=== PATIENT | female | born 1945 | race Hispanic/Latino ===

== ENCOUNTER 2016-10-16 09:00 | Observation (INO) | payer MEDICARE ==
[~2016-10-16 09:00] MED LIST: ANCEF/STERILE WATER 2 GM/20 ML 2 GM/20 ML SYRINGE IV NR; NACL 0.9% 1000 ML 1,000 ML IV SCH
[2016-10-16] MEDS ORDERED: ZOFRAN IV PRN (10:30)
--- NOTE | 2016-10-16 10:32 | Anesthesia Consultation ---
Anesthesia Consult and Med Hx Date of service: 10/16/16 - Airway Anesthetic Teeth Evaluation: Good, Chipped (TOP RIGHT MOLAR), Bridges ROM Head & Neck: Adequate Mental/Hyoid Distance: Adequate Mallampati Class: Class II Intubation Access Assessment: Probably Good - Pulmonary Exam CTA: Yes - Cardiac Exam Cardiac Exam: RRR - Pre-Operative Health Status ASA Pre-Surgery Classification: ASA4 Proposed Anesthetic Plan: General - Pulmonary Hx Smoking: No Hx Asthma: No Hx Sleep Apnea: No - Cardiovascular System Hx Hypertension: Yes (FOR 18 YRS) Hx Heart Attack/AMI: Yes (MILD IN 2013, REPORTS NORMAL CATH) - Central Nervous System Hx Seizures: No CVA: No Hx Psychiatric Problems: No - Endocrine Hx Renal Disease: Yes (POLYCYSTIC KIDNEY DISEASE, ON HD FOR 4 YRS) Hx End Stage Renal Disease: Yes (LAST HD WEDNESDAY) Hx Liver Disease: Yes (POLYCYSTIC LIVER DISEASE?) Hx Non-Insulin Dependent Diabetes: No Hx Thyroid Disease: Yes Hx Hypothyroidism: Yes - Hematic Hx Anemia: Yes (IN 2012) - Other Systems Hx Cancer: Yes (SKIN) Hx Obesity: Yes - Additional Comments Anesthesia Medical History Comments: NO PROBLEMS WITH ANESTHESIA IN THE PAST.
--- NOTE | 2016-10-16 10:34 | Anesthesia Day of Surgery ---
Anesthesia Day of Surgery - Day of Surgery Patient Examined: Yes Patient H&P Reviewed: Yes Patient is NPO: Yes Beta Blockers: Yes
[2016-10-16] MEDS ORDERED: PEPCID PO NR (11:00)
[2016-10-16] MEDS ORDERED: VERSED IV NR (11:00)
[2016-10-16 11:30] LABS: Basophils % (Auto) 0.8 % (0.0-1.8); Eosinophils % (Auto) 7.8 % (0.0-4.3); Hematocrit 28.3 % (30.3-42.9); Hemoglobin 9.1 gm/dl (10.1-14.3); Mean Corpuscular HGB Conc 32 % (30-34); Mean Corpuscular Hemoglobin 32 pg (28-32); Mean Corpuscular Volume 99 fl (79-97); Red Blood Count 2.87 M/mm3 (3.65-5.03); White Blood Count 3.8 K/mm3 (4.5-11.0)
[2016-10-16 11:31] LABS: Platelet Count 72 K/mm3 (140-440); Red Cell Distribution Width 20.5 % (13.2-15.2)
[2016-10-16] MEDS ORDERED: XYLOCAINE MPF 2% ONE (11:41)
[2016-10-16] MEDS ORDERED: DIPRIVAN 10 MG/ML IV ONE (11:41)
[2016-10-16] MEDS ORDERED: DILAUDID ONE (11:42)
[2016-10-16] MEDS ORDERED: HEPARIN 10,000 UNITS/10 ML ONE ×2 (12:03→13:42)
[2016-10-16] MEDS ORDERED: XYLOCAINE 1%/ EPI 1:100,000 INFILTRATI ONE (12:06)
[2016-10-16] MEDS ORDERED: THROMBIN (BOVINE) TP ONE (12:06)
[2016-10-16] MEDS ORDERED: SODIUM BICARBONATE ONE (12:07)
[2016-10-16] MEDS ORDERED: RIFADIN ONE (12:07)
[2016-10-16] MEDS ORDERED: NACL 0.9% 500 ML 500 ML ONE (12:08)
[2016-10-16] MEDS ORDERED: MARCAINE-EPI/PF 0.5%-1:200,000 INFILTRATI ONE ×2 (12:09→13:12)
[2016-10-16 12:12] LABS: BUN/Creatinine Ratio 8.33; Chloride 95.1 mmol/L (98-107); Potassium 3.6 mmol/L (3.6-5.0)
[2016-10-16] MEDS ORDERED: NACL 0.9% IR ONE (13:13)
[2016-10-16] MEDS ORDERED: HEPARIN 10,000 UNITS/10 ML 2,000 UNIT in NACL 0.9% 500 ML 500 ML IR ONE (13:14)
[2016-10-16] MEDS ORDERED: ZOFRAN ONE (13:42)
[2016-10-16] MEDS ORDERED: NACL 0.9% 250ML 250 ML ONE (14:30)
[2016-10-16] MEDS ORDERED: ePHEDrine SULFATE ONE (14:36)
[2016-10-16] MEDS: DILAUDID IV PRN ×4 (15:30→16:00)
[2016-10-16] MEDS ORDERED: DECADRON ONE (15:34)
--- NOTE | 2016-10-16 15:43 | Operative Report ---
Operative Report Operative Report: Preoperative diagnosis: left arm pseudoaneurysmal AV access Post-operative diagnosis: Same Operation: AV access pseudoaneurysm repair with aneurysmorrhaphy. Left IJ PermCath insertion. Ultrasound guided access. Surgeon: Kiara Pascal DO. Beaming Inspector : ALICIA ROSALES Anesthesia type: Gen. Estimated blood loss: 100 mL Specimens: pseudoneurysm wall Indications: This is a 70-year-old male with large pseudoaneurysm of left AV fistula. Risks, benefits and alternatives were discussed with patient as well as option of pseudoaneurysm repair by aneurysmorrhaphy and permacath insertion or revising with AV graft. Patient understood, chose to proceed and signed informed consent. Procedure details: Patient was brought to the operating room in supine position with left arm on the extension table. Was put under general anesthesia. Her is left arm was prepped and draped in sterile fashion. The incision was initially created over distal and proximal part of the pseudoaneurysm over AVF with 15 blade and carried down with electrocautery. The proximal and distal parts of AV fistula was dissected and encircled with silastic loops. The incision was then carried over the pseudoaneurysm part with elliptical incision. Pseudoaneurysm was dissected down with electrocautery to the base. Proximal and distal control at this point was gained with the angled DeBakey clamps and patient was heparinized was 3000 heparin. The aneurysm was entered with electrocautery and the edges with the skin edges were excised. Pseudoaneurysm edges in the middle were approximated with 5-0 C1 stitch bilaterally to the aneurysmal wall reapproximated from both sides. Hemostasis was achieved with electrocautery one repair stitch required. Incision was closed in layers: 3-0 Vicryl and 4-0 Monocryl. Dermabond applied. All Instrument counts were correct 2. Sterile dressing was applied. Second procedure was left IJ PermCath insertion. Ultrasound was performed initially on the right IJ and noted to have sclerosed right IJ. Attention was switched to the left side which showed patent IJ. Ultrasound-guided left IJ access was gained with micropuncture needle and exchanged the micropuncture sheath. The wire was advanced with fluoroscopy guidance to SVC. Next PermCath was tunneled. Then access was dilated with serial dilators and peel-away sheath inserted under fluoroscopy guidance into the SVC. PermCath was inserted and positioned in the SVC atrial junction. There was smooth transection, no kinks. Ports were flushed with heparinized saline and gave good flow. They were locked with heparin and 1.8 mL in each. Patient tolerates procedure well and was transferred to the postanesthesia care unit in stable condition
[2016-10-16] MEDS ORDERED: REGLAN ONE (16:01)
[2016-10-16] MEDS ORDERED: REGLAN IV PRN (16:01)
--- NOTE | 2016-10-16 16:02 | Short Stay Summary ---
Short Stay Documentation Date of service: 10/16/16 - History H&P: obtained from office Past Medical History: ESRD, hypertension Social history: no significant social history - Allergies and Medications Current Medications: Allergies No Known Allergies Allergy (Verified 10/16/16 10:22) Home Medications Medication Instructions Recorded Confirmed Last Taken Type Ascorbic Acid [Vitamin C] 500 mg PO QDAY 10/13/16 10/13/16 10/15/16 History Calcium Acetate 667 mg PO TIDWM 10/13/16 10/13/16 10/15/16 History Carvedilol [Coreg] 25 mg PO BID 10/13/16 10/13/16 10/16/16 07:00 History Cholecalciferol Vit D3 [Vitamin D3] 1,000 unit PO QDAY 10/13/16 10/13/16 History Loratadine [Claritin] 10 mg PO DAILY PRN 10/13/16 10/13/16 10/15/16 History Losartan [Cozaar] 100 mg PO QDAY 10/13/16 10/13/16 10/16/16 07:00 History [place]-3S/Dha/Epa/Fish Oil [Fish 1 each PO QDAY 10/13/16 10/13/16 10/15/16 History Oil 1,200 mg Softgel] Sennosides Tab [Senokot] 3 tab PO QHS 10/13/16 10/13/16 10/15/16 History Thyroid,Pork [[place] Thyroid] 15 mg PO QDAY 10/13/16 10/13/16 10/15/16 History Vit B Cplx #11/FA/C/Biot/Zn Ox 1 each PO QDAY 10/13/16 10/13/16 10/15/16 History [Dialyvite with Zinc Tablet] amLODIPine [Norvasc] 5 mg PO BID 10/13/16 10/13/16 10/16/16 07:00 History Active Medications Famotidine (Pepcid) 20 mg PO PREOP NR Stop: 10/16/16 21:00 Last Admin: 10/16/16 11:35 Dose: 20 mg Hydromorphone HCl (Dilaudid) 0.25 mg IV Q10MIN PRN PRN Reason: Pain, Moderate (4-6) Stop: 10/16/16 17:00 Cefazolin Sodium (Ancef/Sterile Water 2 Gm/20 Ml) 2 gm in 20 mls @ 80 mls/hr IV PREOP NR PRN Reason: Protocol Stop: 10/16/16 23:59 Sodium Chloride (Nacl 0.9% 1000 Ml) 1,000 mls @ 42 mls/hr IV DIRECT [place] Last Admin: 10/16/16 11:30 Dose: 42 mls/hr Midazolam HCl (Versed) 2 mg IV PREOP NR Stop: 10/16/16 23:59 Last Admin: 10/16/16 12:16 Dose: 2 mg Ondansetron HCl (Zofran) 4 mg IV ONCE PRN PRN Reason: Nausea And Vomiting Stop: 10/16/16 21:00 - Brief post op/procedure progress note Date of procedure: 10/16/16 Pre-op diagnosis: malfunction of AVF, pseudoaneurysm Post-op diagnosis: same Procedure: left IJ permcath insertion US guided left IJ access left AVF revision with PSA repair Anesthesia: GETA Findings: aneurysm wall with intimal hyperplasia Surgeon: PHIL BARTHOLOMEW Card Doffer: ALICIA ROSALES Estimated blood loss: 50-100ml Pathology: list (psa wall) Specimen disposition: to lab Condition: stable - Disposition Condition at discharge: Good Disposition: [id number]-01 TO HOME OR SELFCARE - Discharge Diagnoses (1) Malfunction of arteriovenous dialysis fistula Status: Acute Qualifiers: Encounter type: E Short Stay Discharge Plan Diet: renal Wound: open to air Special Instructions: no heavy lifting Follow up with: PRIMARY CAREMD [Primary Care Provider] - 7 Days PHIL BARTHOLOMEW DO [Staff Physician] - 14 Days Prescriptions: HYDROcodone/APAP 5-325 [[place] 5/325] 1 each PO Q6HR PRN #20 tablet PRN Reason: Pain
--- NOTE | 2016-10-16 17:29 | Post Anesthesia Evaluation ---
- Post Anesthesia Evaluation Patient Participated: Yes Airway Patent: Yes Stable Respiratory Function: Yes Nausea/Vomiting: No Temp > 96.8F: Yes Pain Manageable: Yes Adequeate Hydration: Yes Anesthesia Complications: No Block Receding Appropriately: Not Applicable Patient on Ventilator: No
[2016-10-16] MEDS ORDERED: PROVENTIL IH ONE (17:41)
[2016-10-16] MEDS ORDERED: PROVENTIL IH PRN (17:45)
[2016-10-16] MEDS ORDERED: TRANSDERM-SCOP TD ONE (19:00)
[2016-10-17] MEDS ORDERED: NORVASC PO SCH
[2016-10-17] MEDS ORDERED: CLARITIN PO PRN
[2016-10-17] MEDS ORDERED: COREG PO SCH
--- NOTE | 2016-10-17 | Consultation ---
History of Present Illness - Reason for Consult Consult date: 10/16/16 Medical management Requesting physician: PHIL BARTHOLOMEW - History of Present Illness Had surgical intervention for malfunction of AVF, pseudoaneurysm L arm Also left IJ permcath insertion US guided left IJ access left AVF revision with PSA repair.Postop patient admitted for volume overload Htn and for HD.SOB and orthopnea present.Pain about 5/10. Past History Past Medical History: ESRD, hypertension, hyperlipidemia, hypothyroidism Past Surgical History: Other (AVF insertion previously and AVF repair today along with Permacath insertion in L IJ) Social history: no significant social history, lives with family Family history: hypertension Medications and Allergies Allergies Allergy/AdvReac Type Severity Reaction Status Date / Time No Known Allergies Allergy Verified 10/16/16 10:22 Home Medications Medication Instructions Recorded Confirmed Last Taken Type Ascorbic Acid [Vitamin C] 500 mg PO QDAY 10/13/16 10/13/16 10/15/16 History Calcium Acetate 667 mg PO TIDWM 10/13/16 10/13/16 10/15/16 History Carvedilol [Coreg] 25 mg PO BID 10/13/16 10/13/16 10/16/16 07:00 History Cholecalciferol Vit D3 [Vitamin D3] 1,000 unit PO QDAY 10/13/16 10/13/16 History Loratadine [Claritin] 10 mg PO DAILY PRN 10/13/16 10/13/16 10/15/16 History Losartan [Cozaar] 100 mg PO QDAY 10/13/16 10/13/16 10/16/16 07:00 History [place]-3S/Dha/Epa/Fish Oil [Fish 1 each PO QDAY 10/13/16 10/13/16 10/15/16 History Oil 1,200 mg Softgel] Sennosides Tab [Senokot] 3 tab PO QHS 10/13/16 10/13/16 10/15/16 History Thyroid,Pork [[place] Thyroid] 15 mg PO QDAY 10/13/16 10/13/16 10/15/16 History Vit B Cplx #11/FA/C/Biot/Zn Ox 1 each PO QDAY 10/13/16 10/13/16 10/15/16 History [Dialyvite with Zinc Tablet] amLODIPine [Norvasc] 5 mg PO BID 10/13/16 10/13/16 10/16/16 07:00 History HYDROcodone/APAP 5-325 [[place] 1 each PO Q6HR PRN #20 tablet 10/16/16 Unknown Rx 5/325] Active Meds: Active Medications Albuterol (Proventil) 2.5 mg IH ONCE PRN PRN Reason: Shortness Of Breath Last Admin: 10/16/16 18:10 Dose: 2.5 mg Sodium Chloride (Nacl 0.9% 1000 Ml) 1,000 mls @ 42 mls/hr IV DIRECT [place] Last Admin: 10/16/16 11:30 Dose: 42 mls/hr Review of Systems All systems: negative Constitutional: no weight loss, no weight gain, no fever, no chills Ears, nose, mouth and throat: no bleeding gums, no hoarseness, no sore throat Breasts: deferred Cardiovascular: shortness of breath, dyspnea on exertion, no chest pain, no orthopnea, no palpitations, no rapid/irregular heart beat, no edema, no syncope , no lightheadedness Respiratory: dyspnea on exertion, no cough, no cough with sputum, no excessive sputum, no hemoptysis, no shortness of breath, no congestion, no wheezing, no pleurisy, no pain, no pain on inspiration, no snoring Gastrointestinal: no abdominal pain, no nausea, no vomiting, no diarrhea, no constipation, no change in bowel habits, no hematemesis, no coffee ground emesis Genitourinary Female: no dysuria, no urinary frequency, no urgency, no stress incontinence, no post void dribbling Menstruation: ammenorrhea Musculoskeletal: no neck stiffness, no neck pain, no shooting arm pain, no arm numbness/tingling, no low back pain, no shooting leg pain, no leg numbness/ tingling, no redness of joints Integumentary: no rash, no pruritis, no redness, no sores, no wounds, no jaundice, no boils, no blisters Neurological: no seizures, no syncope Psychiatric: no anxiety, no memory loss, no change in sleep habits, no sleep disturbances, no insomnia, no hypersomnia, no change in appetite Endocrine: no cold intolerance, no heat intolerance, no polyphagia, no excessive thirst, no polydipsia Hematologic/Lymphatic: no easy bruising, no easy bleeding Allergic/Immunologic: no urticaria, no allergic rhinitis, no wheezing Exam - Physical Exam Narrative exam: Lying comfortably - Constitutional Vitals: Temp Pulse Resp BP Pulse Ox 97.4 F L 70 16 166/76 100 10/16/16 23:00 10/16/16 23:00 10/16/16 23:00 10/16/16 23:00 10/16/16 23:00 General appearance: Present: no acute distress, well-nourished - EENT Eyes: Present: PERRL ENT: hearing intact, clear oral mucosa - Neck Neck: Present: supple, normal ROM - Respiratory Respiratory effort: normal Respiratory: bilateral: CTA - Cardiovascular Heart Sounds: Present: S1 & S2. Absent: rub, click - Extremities Extremities: pulses symmetrical, No edema Peripheral Pulses: within normal limits - Abdominal General gastrointestinal: Present: soft, non-tender, non-distended, normal bowel sounds Female genitourinary: Present: normal - Integumentary Integumentary: Present: clear, warm, dry - Musculoskeletal Musculoskeletal: gait normal, strength equal bilaterally - Psychiatric Psychiatric: appropriate mood/affect, intact judgment & insight - Neurologic Neurologic: CNII-XII intact, moves all extremities Results - Labs CBC & Chem 7: 10/16/16 11:10 10/16/16 11:10 Labs: Abnormal lab results 10/16/16 10/16/16 Range/Units 11:10 11:10 WBC 3.8 L (4.5-11.0) K/mm3 RBC 2.87 L (3.65-5.03) M/mm3 Hgb 9.1 L (10.1-14.3) gm/dl Hct 28.3 L (30.3-42.9) % MCV 99 H (79-97) fl RDW 20.5 H (13.2-15.2) % Plt Count 72 L (140-440) K/mm3 Eos % (Auto) 7.8 H (0.0-4.3) % Lymph # 0.5 L (1.2-5.4) K/mm3 Seg Neutrophils % 71.6 H (40.0-70.0) % Chloride 95.1 L (98-107) mmol/L BUN 55 H (7-17) mg/dL Creatinine 6.6 H (0.7-1.2) mg/dL - Imaging and Cardiology EKG: report reviewed Assessment and Plan - Patient Problems (1) Malfunction of arteriovenous dialysis fistula Current Visit: Yes Status: Acute Qualifiers: Encounter type: initial encounter Qualified Code(s): T82.590A - Other mechanical complication of surgically created arteriovenous fistula, initial encounter Plan to address problem: Had surgical intervention.Not to use AV fistula for time being.Use L IJ permacath. (2) ESRD (end stage renal disease) on dialysis Current Visit: Yes Status: Chronic Plan to address problem: Cont HD.Nephrology consulted. (3) HTN (hypertension) Current Visit: Yes Status: Chronic Qualifiers: Hypertension type: essential hypertension Qualified Code(s): I10 - Essential (primary) hypertension Plan to address problem: Cont Amlodipine Losartan and carvedilol. (4) Hypothyroidism Current Visit: Yes Status: Chronic Qualifiers: Hypothyroidism type: acquired Qualified Code(s): E03.9 - Hypothyroidism, unspecified Plan to address problem: Cont [place] Thyroid or equivalent (5) Vitamin D deficiency Current Visit: Yes Status: Chronic Plan to address problem: Cont Vit D 1000 units qdAY (6) DVT prophylaxis Current Visit: Yes Status: Acute Plan to address problem: Scd's only
[2016-10-17] MEDS ORDERED: PHOSLO PO SCH (08:00)
--- NOTE | 2016-10-17 09:09 | Fluoroscopy Report ---
2 fluoroscopic images of the chest: History: Trauma catheter placement. Findings: Tip of the right appears to be in the right atrium. No pneumothorax. Impression: Tip of left permacath appears to be in right atrium.
--- NOTE | 2016-10-17 09:14 | XRay Report ---
Chest: History: Shortness of breath. Findings: Cardiomegaly. Trachea is midline. Stable large bore venous catheter. Mild pulmonary venous congestion with minimal bilateral pleural effusion. Impression: Probable CHF or fluid overload.
[2016-10-17] MEDS ORDERED: VITAMIN D3 PO SCH (10:00)
[2016-10-17] MEDS ORDERED: FISH OIL PO SCH (10:00)
[2016-10-17] MEDS ORDERED: COZAAR PO SCH (10:00)
[2016-10-17] MEDS ORDERED: VITAMIN C PO SCH (10:00)
[2016-10-17] MEDS ORDERED: THYROID PORK 15 MG PO SCH (10:00)
--- NOTE | 2016-10-17 10:27 | Progress Note ---
Subjective Date of service: 10/17/16 Interval history: Patient has no anesthetic related complaints. Objective - Constitutional Vitals: Vital Signs - 12hr 10/16/16 10/17/16 10/17/16 23:00 00:46 00:48 Temperature 97.4 F L Pulse Rate 70 70 Pulse Rate [ 70 Right] Respiratory 16 Rate Blood Pressure 166/76 166/76 Blood Pressure 166/76 [Right Arm] O2 Sat by Pulse 100 Oximetry 10/17/16 10/17/16 04:00 09:00 Temperature 97.7 F 97.6 F Pulse Rate Pulse Rate [ 67 71 Right] Respiratory 20 16 Rate Blood Pressure Blood Pressure 140/69 137/61 [Right Arm] O2 Sat by Pulse 93 Oximetry - Labs CBC & Chem 7: 10/16/16 11:10 10/16/16 11:10 Labs: Abnormal lab results 10/16/16 10/16/16 Range/Units 11:10 11:10 WBC 3.8 L (4.5-11.0) K/mm3 RBC 2.87 L (3.65-5.03) M/mm3 Hgb 9.1 L (10.1-14.3) gm/dl Hct 28.3 L (30.3-42.9) % MCV 99 H (79-97) fl RDW 20.5 H (13.2-15.2) % Plt Count 72 L (140-440) K/mm3 Eos % (Auto) 7.8 H (0.0-4.3) % Lymph # 0.5 L (1.2-5.4) K/mm3 Seg Neutrophils % 71.6 H (40.0-70.0) % Chloride 95.1 L (98-107) mmol/L BUN 55 H (7-17) mg/dL Creatinine 6.6 H (0.7-1.2) mg/dL
--- NOTE | 2016-10-17 10:28 | Consultation ---
History of Present Illness - Reason for Consult Consult date: 10/17/16 end stage renal disease Requesting physician: ISAAK MONTERO - History of Present Illness Had surgical intervention for malfunction of AVF, pseudoaneurysm L arm Also left IJ permcath insertion US guided left IJ access left AVF revision with PSA repair.Postop patient admitted for volume overload Htn and for HD.SOB and orthopnea present.Pain about 5/10. Past History Past Medical History: anemia, dialysis, ESRD, hypertension, hyperlipidemia, hypothyroidism, renal failure Past Surgical History: Other (AVF insertion previously and AVF repair today along with Permacath insertion in L IJ) Social history: lives with family. denies: alcohol abuse, prescription drug abuse Family history: hypertension Medications and Allergies Allergies Allergy/AdvReac Type Severity Reaction Status Date / Time No Known Allergies Allergy Verified 10/16/16 10:22 Home Medications Medication Instructions Recorded Confirmed Last Taken Type Ascorbic Acid [Vitamin C] 500 mg PO QDAY 10/13/16 10/13/16 10/15/16 History Calcium Acetate 667 mg PO TIDWM 10/13/16 10/13/16 10/15/16 History Carvedilol [Coreg] 25 mg PO BID 10/13/16 10/13/16 10/16/16 07:00 History Cholecalciferol Vit D3 [Vitamin D3] 1,000 unit PO QDAY 10/13/16 10/13/16 History Loratadine [Claritin] 10 mg PO DAILY PRN 10/13/16 10/13/16 10/15/16 History Losartan [Cozaar] 100 mg PO QDAY 10/13/16 10/13/16 10/16/16 07:00 History [place]-3S/Dha/Epa/Fish Oil [Fish 1 each PO QDAY 10/13/16 10/13/16 10/15/16 History Oil 1,200 mg Softgel] Sennosides Tab [Senokot] 3 tab PO QHS 10/13/16 10/13/16 10/15/16 History Thyroid,Pork [[place] Thyroid] 15 mg PO QDAY 10/13/16 10/13/16 10/15/16 History Vit B Cplx #11/FA/C/Biot/Zn Ox 1 each PO QDAY 10/13/16 10/13/16 10/15/16 History [Dialyvite with Zinc Tablet] amLODIPine [Norvasc] 5 mg PO BID 10/13/16 10/13/16 10/16/16 07:00 History HYDROcodone/APAP 5-325 [[place] 1 each PO Q6HR PRN #20 tablet 10/16/16 Unknown Rx 5/325] Active Meds: Active Medications Albuterol (Proventil) 2.5 mg IH ONCE PRN PRN Reason: Shortness Of Breath Last Admin: 10/16/16 18:10 Dose: 2.5 mg Amlodipine Besylate (Norvasc) 5 mg PO BID [facility] Last Admin: 10/17/16 00:48 Dose: 5 mg Ascorbic Acid (Vitamin C) 500 mg PO QDAY [facility] Calcium Acetate ([place]) 667 mg PO TIDWM [facility] Carvedilol (Coreg) 25 mg PO BID [facility] Last Admin: 10/17/16 00:46 Dose: 25 mg Cholecalciferol (Vitamin D3) 1,000 unit PO QDAY [facility] Fish Oil (Fish Oil) 1,000 mg PO QDAY [facility] Sodium Chloride (Nacl 0.9% 1000 Ml) 1,000 mls @ 42 mls/hr IV DIRECT [facility] Last Admin: 10/16/16 11:30 Dose: 42 mls/hr Loratadine (Claritin) 10 mg PO DAILY PRN PRN Reason: Allergy Symptoms Losartan Potassium (Cozaar) 100 mg PO QDAY [facility] Miscellaneous Medication (Thyroid,Pork [[place] Thyroid]) 15 mg PO QDAY [facility] Senna (Senokot) 8.6 mg PO QHS [facility] Review of Systems Constitutional: fatigue, weakness Musculoskeletal: limitation of motion, arthritis Exam - Vital Signs Vital signs: Vital Signs Temp Pulse Resp BP Pulse Ox 97.6 F 78 18 154/75 97 10/16/16 10:00 10/16/16 10:00 10/16/16 10:00 10/16/16 10:00 10/16/16 10:00 - Physical Exam Narrative exam: General appearance: Present: no acute distress, well-nourished - EENT Eyes: Present: PERRL ENT: hearing intact, clear oral mucosa - Neck Neck: Present: supple, normal ROM - Respiratory Respiratory effort: normal Respiratory: bilateral: CTA - Cardiovascular Heart Sounds: Present: S1 & S2. Absent: rub, click - Extremities Extremities: pulses symmetrical, No edema Peripheral Pulses: within normal limits - Abdominal General gastrointestinal: Present: soft, non-tender, non-distended, normal bowel sounds Female genitourinary: Present: normal - Integumentary Integumentary: Present: clear, warm, dry - Musculoskeletal Musculoskeletal: gait normal, strength equal bilaterally - Psychiatric Psychiatric: appropriate mood/affect, intact judgment & insight - Neurologic Neurologic: CNII-XII intact, moves all extremities Results - Lab Results 10/16/16 11:10 10/16/16 11:10 Most recent lab results Calcium 9.0 mg/dL (8.4-10.2) 10/16/16 11:10 Assessment and Plan Impression: * ESRD * HTN * AV Access repair * Anemia in ESRD Plan: * HD today * uf as tolerated * strict i/os * epogen per protocol * home after dialysis from renal standpoint
[2016-10-17] MEDS ORDERED: NACL 0.9% 100 ML IV PRN (10:29)
[2016-10-17] MEDS ORDERED: PROCRIT IV PRN (10:29)
--- NOTE | 2016-10-17 10:52 | Progress Note ---
Assessment and Plan Assessment and plan: Malfunction av fistula with pseudoaneurysm left arm s/p repair yesterday. Management by attending vasc surg Fluid overload due to missed dialysis. Will consult Nephrology for dialysis today. Acute pulmonary edema secondary to ESRD. For dialysis today Hypertension. Continue Coreg and Norvasc Full code status Disposition. May be discharged home after dialysis from Hospitalist point of view. History Interval history: Shortness of breath, s/p left arm pseudoaneurysm repair Missed dialysis yesterday Hospitalist Physical - Physical exam Narrative exam: Gen Appearance: Not in acute distress, obese HEENT: normocephalic, atraumatic Neck: supple, mild JVD Lungs: Bilateral basal crackles, no wheezes Heart: S1 and S2 regular, no murmurs or gallop Abdomen: Soft, non tender, distended ,normal bowel sounds, Extremity: Left arm swollen,Mild bilateral lower ext edema, no clubbing or cyanosis Neuro : Awake,alert,oriented x 3, no focal neurological signs. Psych : - Constitutional Vitals: Temp Pulse Resp BP Pulse Ox 97.6 F 71 16 137/61 93 10/17/16 09:00 10/17/16 09:00 10/17/16 09:00 10/17/16 09:00 10/17/16 09:00 General appearance: Present: no acute distress, well-nourished Results - Labs CBC & Chem 7: 10/16/16 11:10 10/16/16 11:10 Labs: Laboratory Last Values WBC 3.8 K/mm3 (4.5-11.0) L 10/16/16 11:10 RBC 2.87 M/mm3 (3.65-5.03) L 10/16/16 11:10 Hgb 9.1 gm/dl (10.1-14.3) L 10/16/16 11:10 Hct 28.3 % (30.3-42.9) L 10/16/16 11:10 MCV 99 fl (79-97) H 10/16/16 11:10 MCH 32 pg (28-32) 10/16/16 11:10 MCHC 32 % (30-34) 10/16/16 11:10 RDW 20.5 % (13.2-15.2) H 10/16/16 11:10 Plt Count 72 K/mm3 (140-440) L 10/16/16 11:10 Lymph % (Auto) 14.2 % (13.4-35.0) 10/16/16 11:10 [place] % (Auto) 5.6 % (0.0-7.3) 10/16/16 11:10 Eos % (Auto) 7.8 % (0.0-4.3) H 10/16/16 11:10 Baso % (Auto) 0.8 % (0.0-1.8) 10/16/16 11:10 Lymph # 0.5 K/mm3 (1.2-5.4) L 10/16/16 11:10 [place] # 0.2 K/mm3 (0.0-0.8) 10/16/16 11:10 Eos # 0.3 K/mm3 (0.0-0.4) 10/16/16 11:10 Baso # 0.0 K/mm3 (0.0-0.1) 10/16/16 11:10 Seg Neutrophils % 71.6 % (40.0-70.0) H 10/16/16 11:10 Seg Neutrophils # 2.7 K/mm3 (1.8-7.7) 10/16/16 11:10 Sodium 137 mmol/L (137-145) 10/16/16 11:10 Potassium 3.6 mmol/L (3.6-5.0) 10/16/16 11:10 Chloride 95.1 mmol/L (98-107) L 10/16/16 11:10 Carbon Dioxide 23 mmol/L (22-30) 10/16/16 11:10 Anion Gap 23 mmol/L 10/16/16 11:10 BUN 55 mg/dL (7-17) H 10/16/16 11:10 Creatinine 6.6 mg/dL (0.7-1.2) H 10/16/16 11:10 Estimated GFR 6 ml/min 10/16/16 11:10 BUN/Creatinine Ratio 8.33 % 10/16/16 11:10 Glucose 94 mg/dL (65-100) 10/16/16 11:10 Calcium 9.0 mg/dL (8.4-10.2) 10/16/16 11:10
--- NOTE | 2016-10-17 12:14 | Progress Note ---
Assessment and Plan Patient is doing much better and tolerating dialysis without complications. Ok to discharge home after dialysis. Subjective Date of service: 10/17/16 Principal diagnosis: Complications of Dialysis Access Interval history: The patient is currently on dialysis and tolerating it well through a left IJ permacath. She has some jovita-incisional pain but no other complaints. Objective - Constitutional Vitals: Vital Signs - 12hr 10/17/16 10/17/16 10/17/16 00:46 00:48 04:00 Temperature 97.7 F Pulse Rate 70 70 Pulse Rate [ 67 Right] Respiratory 20 Rate Blood Pressure 166/76 166/76 Blood Pressure 140/69 [Right Arm] O2 Sat by Pulse Oximetry 10/17/16 09:00 Temperature 97.6 F Pulse Rate Pulse Rate [ 71 Right] Respiratory 16 Rate Blood Pressure Blood Pressure 137/61 [Right Arm] O2 Sat by Pulse 93 Oximetry General appearance: Present: no acute distress - Neck Neck: supple - Respiratory Respiratory effort: normal - Breasts Breasts: deferred - Cardiovascular Rhythm: regular Extremities: no ischemia, pulses intact (Left radial pulse is easily palpable), abnormal (incision is intact. she has some ecchymosis but no evidence of hemtoma) - Genitourinary Female genitourinary: deferred - Labs CBC & Chem 7: 10/16/16 11:10 10/16/16 11:10 Labs: Abnormal lab results 10/16/16 Range/Units 11:10 Chloride 95.1 L (98-107) mmol/L BUN 55 H (7-17) mg/dL Creatinine 6.6 H (0.7-1.2) mg/dL
[2016-10-17] MEDS ORDERED: NACL 0.9 (PRIMING MACHINE ONLY DIALYSIS) MC ONE (13:34)
[2016-10-17] MEDS ORDERED: HEPARIN IV PRN (14:54)
[2016-10-17 16:53] VITALS: BP 140/67
[2016-10-17] MEDS ORDERED: SENOKOT PO SCH (22:00)
== END 2016-10-17 16:45 | disposition home or self-care (01) ==
LOC: OR 09:00 → 2B-SURG 19:23
PROVIDERS: ADMIT Surgery Vascular Surgery; ATTEND Surgery Vascular Surgery
DX: I77.0 Arteriovenous fistula, acquired (principal); T82.590S Other mechanical complication of surgically created arteriovenous fistula, sequela; I12.0 Hypertensive chronic kidney disease with stage 5 chronic kidney disease or end stage renal disease; N18.6 End stage renal disease; N17.9 Acute kidney failure, unspecified; I87.2 Venous insufficiency (chronic) (peripheral); J81.0 Acute pulmonary edema; D63.1 Anemia in chronic kidney disease; R09.02 Hypoxemia; E03.9 Hypothyroidism, unspecified; E55.9 Vitamin D deficiency, unspecified; E66.9 Obesity, unspecified; C44.90 Unspecified malignant neoplasm of skin, unspecified; Z99.2 Dependence on renal dialysis; Z83.3 Family history of diabetes mellitus; Y84.1 Kidney dialysis as the cause of abnormal reaction of the patient, or of later complication, without mention of misadventure at the time of the procedure; Y92.89 Other specified places as the place of occurrence of the external cause; T82.318A Breakdown (mechanical) of other vascular grafts, initial encounter
CPT/HCPCS: 36415; 36558; 37607; 71010; 77001; 80048; 85025; 88304; 88311; 96374; 96375; 96376; C1750; G0378; J0690; J0885; J1100; J1170; J1644; J2250; J2405; J2704; J2765; J7030; J7040; J7050; G0257; J3490

== ENCOUNTER 2017-10-14 05:56 | Day surgery (SDC) | payer MEDICARE ==
[~2017-10-14 05:56] MED LIST changes: -ANCEF/STERILE WATER 2 GM/20 ML 2 GM/20 ML SYRINGE IV NR; +DDAVP IV ONE; +HEPARIN 10,000 UNITS/10 ML IV ONE; +MARCAINE 0.5% INFILTRATI ONE; -NACL 0.9% 1000 ML 1,000 ML IV SCH; +NACL 0.9% 500 ML IRRIGATION ONE; +NACL 0.9% IR ONE
[2017-10-14] MEDS ORDERED: ANCEF/STERILE WATER 2 GM/20 ML 2 GM/20 ML SYRINGE IV NR (06:00)
[2017-10-14] MEDS ORDERED: VERSED IV NR (06:00)
[2017-10-14] MEDS ORDERED: NACL 0.9% 1000 ML 1,000 ML IV SCH ×2 (06:00→07:00)
[2017-10-14] MEDS ORDERED: NACL BACTERIOSTATIC INFILTRATI ONE (06:47)
[2017-10-14] MEDS ORDERED: NACL 0.9% 500 ML 500 ML ONE (06:48)
[2017-10-14] MEDS ORDERED: SODIUM BICARBONATE ONE (06:48)
[2017-10-14] MEDS ORDERED: XYLOCAINE 1%/ EPI 1:100,000 INFILTRATI ONE (06:48)
[2017-10-14] MEDS ORDERED: HEPARIN 10,000 UNITS/10 ML ONE (06:48)
[2017-10-14] MEDS ORDERED: SUBLIMAZE ONE ×2 (07:14→11:02)
[2017-10-14] MEDS ORDERED: DIPRIVAN 10 MG/ML IV ONE (07:14)
[2017-10-14] MEDS ORDERED: XYLOCAINE MPF 2% ONE (07:14)
[2017-10-14 07:28] LABS: Eosinophils # (Auto) 0.1 K/mm3 (0.0-0.4); Monocytes # (Auto) 0.2 K/mm3 (0.0-0.8); Monocytes % (Auto) 8.9 % (0.0-7.3)
[2017-10-14 07:41] LABS: Calcium 8.9 mg/dL (8.4-10.2)
--- NOTE | 2017-10-14 07:42 | Anesthesia Day of Surgery ---
Anesthesia Day of Surgery - Day of Surgery Patient Examined: Yes Patient H&P Reviewed: Yes Patient is NPO: Yes
--- NOTE | 2017-10-14 07:45 | Anesthesia Consultation ---
Anesthesia Consult and Med Hx Date of service: 10/14/17 - Airway Anesthetic Teeth Evaluation: Good ROM Head & Neck: Adequate Mental/Hyoid Distance: Adequate Mallampati Class: Class III Intubation Access Assessment: Possibly Difficult - Pulmonary Exam CTA: Yes - Cardiac Exam Cardiac Exam: RRR - Pre-Operative Health Status ASA Pre-Surgery Classification: ASA3 Proposed Anesthetic Plan: General - Pulmonary Hx Smoking: No - Cardiovascular System Hx Hypertension: Yes (FOR 18 YRS) Hx Heart Attack/AMI: Yes (MILD IN 2013, REPORTS NORMAL CATH) - Central Nervous System Hx Psychiatric Problems: No - Endocrine Hx Renal Disease: Yes (POLYCYSTIC KIDNEY DISEASE) Hx End Stage Renal Disease: Yes (MWF, dialysed yesterday (W)) Hx Liver Disease: Yes (POLYCYSTIC LIVER DISEASE?) Hx Non-Insulin Dependent Diabetes: No Hx Thyroid Disease: Yes Hx Hypothyroidism: Yes - Hematic Hx Anemia: Yes (IN 2012) - Other Systems Hx Cancer: Yes (SKIN) - Additional Comments Anesthesia Medical History Comments: limited in mobility due to b/l knee pain. See case filler every 3 months. Per patient, last cath negative, no CAD.
[2017-10-14 07:52] LABS: Hematocrit 32.2 % (30.3-42.9); Hemoglobin 10.7 gm/dl (10.1-14.3); Mean Corpuscular HGB Conc 33 % (30-34); Mean Corpuscular Hemoglobin 31 pg (28-32); Mean Corpuscular Volume 94 fl (79-97); Red Blood Count 3.41 M/mm3 (3.65-5.03)
[2017-10-14 07:53] LABS: Basophils % (Auto) 0.9 % (0.0-1.8); Lymphocytes # (Auto) 0.4 K/mm3 (1.2-5.4); Lymphocytes % (Auto) 14.7 % (13.4-35.0); Platelet Count 76 K/mm3 (140-440); Red Cell Distribution Width 15.5 % (13.2-15.2)
[2017-10-14] MEDS ORDERED: ZEMURON IV ONE (08:22)
[2017-10-14] MEDS ORDERED: REGLAN ONE (08:22)
[2017-10-14] MEDS ORDERED: ZOFRAN ONE ×2 (08:22→12:04)
[2017-10-14] MEDS ORDERED: NEO SYNEPHRINE/NS Syringe(OR USE) IV ONE (08:35)
[2017-10-14] MEDS ORDERED: MORPHINE IV PRN (09:03)
[2017-10-14] MEDS ORDERED: ePHEDrine 50 MG/5 ML-0.9% NACL IV ONE ×2 (09:20→11:20)
[2017-10-14] MEDS ORDERED: ROBINUL ONE (10:39)
[2017-10-14] MEDS ORDERED: BLOXIVERZ ONE (10:39)
[2017-10-14] MEDS ORDERED: DDAVP 20 MCG in NACL 0.9% 50 ML IV ONE (10:59)
[2017-10-14] MEDS ORDERED: NACL 0.9% 1000 ML 1,000 ML ONE (11:15)
--- NOTE | 2017-10-14 11:58 | Short Stay Summary ---
Short Stay Documentation Date of service: 10/14/17 Narrative H&P: Admitted to the operative suite for outpatient revision of a AV fistula in the left arm - History H&P: obtained from office (short stay form filled out. Computer unable to load me in for electronic H&P therefore paper forms used) - Allergies and Medications Current Medications: Allergies chlorhexidine Adverse Reaction (Verified 10/14/17 07:54) Unknown PT STATES THEY CLEANED AREA AROUND VAS-CATH AND PUT TEGADERM OVER IT - AREA BECAME RED,SKIN VERY IRRITATED. SKIN PEELED. Home Medications Medication Instructions Recorded Confirmed Last Taken Type Ascorbic Acid [Vitamin C] 500 mg PO QDAY 10/13/16 10/07/17 10/15/16 History B Complex 11/Folic/C/Biot/Zinc 1 each PO QDAY 10/13/16 10/07/17 10/15/16 History [Dialyvite with Zinc Tablet] Calcium Acetate 667 mg PO TIDWM 10/13/16 10/07/17 10/15/16 History Carvedilol [Coreg] 25 mg PO BID 10/13/16 10/07/17 10/16/16 07:00 History Cholecalciferol Vit D3 [Vitamin D3] 1,000 unit PO QDAY 10/13/16 10/07/17 History Loratadine [Claritin] 10 mg PO DAILY PRN 10/13/16 10/07/17 10/15/16 History Losartan [Cozaar] 100 mg PO QDAY 10/13/16 10/07/17 10/16/16 07:00 History [place]-3S/Dha/Epa/Fish Oil [Fish 1 each PO QDAY 10/13/16 10/07/17 10/15/16 History Oil 1,200 mg Softgel] Sennosides Tab [Senokot] 3 tab PO QHS 10/13/16 10/07/17 10/15/16 History amLODIPine [Norvasc] 5 mg PO BID 10/13/16 10/07/17 10/16/16 07:00 History Levothyroxine [Synthroid] 25 mcg PO QAM 10/07/17 10/07/17 Unknown History Active Medications Cefazolin Sodium (Ancef/Sterile Water 2 Gm/20 Ml) 2 gm in 20 mls @ 80 mls/hr IV PREOP NR; Protocol Stop: 10/14/17 12:00 Sodium Chloride (Nacl 0.9% 1000 Ml) 1,000 mls @ 42 mls/hr IV DIRECT [place] Last Admin: 10/14/17 07:20 Dose: 42 mls/hr Sodium Chloride (Nacl 0.9% 1000 Ml) 1,000 mls @ 100 mls/hr IV DIRECT [place] Midazolam HCl (Versed) 2 mg IV PREOP NR Stop: 10/14/17 23:59 Last Admin: 10/14/17 07:45 Dose: 2 mg Morphine Sulfate (Morphine) 2 mg IV Q10MIN PRN PRN Reason: Pain, Moderate (4-6) - Brief post op/procedure progress note Date of procedure: 10/14/17 Pre-op diagnosis: mechanical complication of the fistula, end-stage renal disease Post-op diagnosis: same Procedure: Revision of AV fistula (removal of pseudoaneurysm and reconstruction of fistula ) left arm Anesthesia: GETA Findings: Large pseudoaneurysmal dilatation of the AV fistula successfully reduced to normal size. Good function fistula. Surgeon: KRYSTEN RUEDA Estimated blood loss: minimal Pathology: list (pseudoaneurysm wall and laminated thrombus) Specimen disposition: to lab Condition: stable - Hospital course Hospital course: Satisfactory - Disposition Disposition: TO HOME OR SELFCARE - Discharge Diagnoses (1) Malfunction of arteriovenous dialysis fistula Status: Chronic Qualifiers: Encounter type: subsequent encounter Qualified Code(s): T82.590D - Other mechanical complication of surgically created arteriovenous fistula, subsequent encounter (2) ESRD (end stage renal disease) on dialysis Status: Chronic Short Stay Discharge Plan Activity: advance as tolerated Weight Bearing Status: Full Weight Bearing Diet: diabetic, renal Wound: keep clean and dry Special Instructions: no heavy lifting Follow up with: MICHELLE MCCORMACK MD [Primary Care Provider] - 7 Days KRYSTEN RUEDA MD [Staff Physician] - 14 Days Prescriptions: HYDROcodone/ACETAMINOPHEN [[place] 5-325 Tablet] 1 each PO Q4-6H #20 tablet
[2017-10-14] MEDS ORDERED: ZOFRAN IV PRN (12:13)
[2017-10-14] MEDS ORDERED: SUBLIMAZE IV PRN (12:13)
[2017-10-14] MEDS ORDERED: ZOFRAN IM ONE (12:31)
[2017-10-14 13:28] VITALS: BP 141/99
--- NOTE | 2017-10-14 14:58 | Post Anesthesia Evaluation ---
- Post Anesthesia Evaluation Patient Participated: Yes Airway Patent: Yes Stable Respiratory Function: Yes Nausea/Vomiting: No Temp > 96.8F: Yes Pain Manageable: Yes Adequeate Hydration: Yes Anesthesia Complications: No Block Receding Appropriately: No Patient on Ventilator: No
--- NOTE | 2017-10-14 17:47 | Operative Report ---
PREOPERATIVE DIAGNOSIS: Malfunction of AV fistula, left arm (large pseudoaneurysm formation). POSTOPERATIVE DIAGNOSIS: Malfunction of AV fistula, left arm (large pseudoaneurysm formation). OPERATIVE PROCEDURE: Revision of AV fistula. SURGEON: Rudi Donald M.D.. ANESTHESIA: General with LMA. ESTIMATED BLOOD LOSS: Minimal. COMPLICATIONS: None. INSTRUMENT COUNTS: Correct. SPECIMENS: None. FINDINGS: Large pseudoaneurysm in the cannulation zone of the AV fistula. A successful reduction to approximately 1 cm. Excellent fistula function. DESCRIPTION OF PROCEDURE: With the patient in supine position with the left arm extended, the entire extremity was then prepped and draped using standard sterile technique. I then made an elliptical incision overlying the large pseudoaneurysm in a manner so as to excise the excessive skin, but did not compromise closure. The dissection plane along the fistula was then created and then it was extended along the entire dilated segment until both ends of the dilation were identified and vascular controlled. A normal fistula size was then obtained. I then proceeded to mobilize the entire fistula until it was completely free of surrounding tissue. I then occluded the inflow after heparinization and then opened up the large pseudoaneurysm and then removed redundant pseudoaneurysm wall cavity. I removed a large amount of laminated thrombus. I then reduced the size of the fistula to that of slightly larger than a 10 mm dilator. This was done throughout its length. I attempted to the suture line that I used to close the entire length of the fistula on the side of the fistula. I was reasonably successful in doing so. I placed a couple of interrupted 5-0 Prolene sutures to facilitate anchoring the anastomosis in case of Prolene laceration by the cannulation needles. Prior to completion of suture line, antegrade and retrograde flushing was performed. Suture line was then completed. Flow was released retrograde in the fistula and then reoccluded in antegrade evacuating air. Flow was released to the upper arm. An excellent thrill and bruit developed in the fistula. I used QuikClot for hemostasis and also gave the patient DDAVP. I then closed the subcutaneous tissue over the fistula trying to keep the subcutaneous fat portion relatively thin over the fistula. I then reapproximated the skin using 4-0 running Monocryl. The skin was glued together. At the completion of the procedure, the patient had an easily palpable fistula. It was now back to normal size with an excellent thrill and bruit and a good radial pulse. Sterile dressing was applied and a light Kan wrap for compression was applied. The patient was then extubated and returned to recovery room in stable condition having tolerated the procedure well. Sponge and needle counts were correct. JOB# [id number] JAMES/NTS
== END 2017-10-14 05:57 | disposition home or self-care (01) ==
LOC: OR 05:56
PROVIDERS: ATTEND Surgery Vascular Surgery
DX: T82.898A Other specified complication of vascular prosthetic devices, implants and grafts, initial encounter (principal); I12.0 Hypertensive chronic kidney disease with stage 5 chronic kidney disease or end stage renal disease; N18.6 End stage renal disease; I25.2 Old myocardial infarction; E03.9 Hypothyroidism, unspecified; Z85.828 Personal history of other malignant neoplasm of skin; Z88.1 Allergy status to other antibiotic agents; Y83.2 Surgical operation with anastomosis, bypass or graft as the cause of abnormal reaction of the patient, or of later complication, without mention of misadventure at the time of the procedure
CPT/HCPCS: 36415; 36832; 80048; 85025; 88304; 88311; J0690; J1644; J2250; J2370; J2405; J2597; J2704; J2710; J2765; J3010; J7030; J7040